=== PATIENT | male | born 1990 | race Hispanic/Latino ===

== ENCOUNTER 2024-06-27 19:31 | Emergency (ER) | payer SELFPAY ==
[2024-06-27 21:37] LABS: ALT (SGPT) 52 U/L (8-55); AST (SGOT) 23 U/L (5-34); Albumin 4.3 g/dL (3.5-5.0); Alkaline Phosphatase 61 U/L (40-110); Anion Gap 16 mmol/L (10-20); BUN (Urea Nitrogen) 19 mg/dL (8.9-20.6); Bilirubin, Total 0.4 mg/dL (0.2-1.2); Calc. Creatinine Clearance 0 mL/min (70-130); Calcium 9.4 mg/dL (7.8-10.44); Carbon Dioxide 21 mmol/L (22-29); Chloride 105 mmol/L (98-107); Estimated GFR 103; Globulin 3.1 g/dL (2.4-3.5); Glucose 94 mg/dL (70-105); Potassium 4.1 mmol/L (3.5-5.1); Protein, Total 7.4 g/dL (6.0-8.3); Sodium 138 mmol/L (136-145)
[2024-06-27 21:42] LABS: #Basophils 0.04 10x3/uL (0.0-0.2); #Eosinophils 0.02 10x3/uL (0.0-0.5); #Monocytes 0.55 10x3/uL (0.0-1.1); %Basophils 0.5 % (0.0-2.0); %Eosinophils 0.3 % (0.0-6.0); %Lymphocytes 33.9 % (18.0-47.0); %Monocytes 7.2 % (0.0-10.0); Hematocrit 40.7 % (38.8-50.0); Hemoglobin 14.1 g/dL (13.5-17.5); Mean Corpuscular HGB CONC 34.6 g/dL (32.0-36.0); Mean Corpuscular Hemoglobin 31.8 pg (27.0-33.0); Mean Corpuscular Volume 91.7 fL (81.2-95.1); Mean Platelet Volume 10.6 fL (7.4-10.4); Platelet Count 279 10x3/uL (150-450); RBC Distribution Width 12.7 % (11.5-14.5); Red Blood Cell (RBC) Count 4.44 10x6/uL (4.32-5.72); White Blood Cell (WBC) Count 7.6 10x3/uL (3.5-10.5)
== END 2024-06-27 21:45 | disposition home or self-care (01) ==
LOC: CSHERS 19:31
DX: R42 Dizziness and giddiness (principal); R29.700 NIHSS score 0; Z55.0 Illiteracy and low-level literacy; Z87.891 Personal history of nicotine dependence
CPT/HCPCS: 36415; 36416; 80053; 85025; 93005; 99284

== ENCOUNTER 2025-05-03 14:14 | Outpatient (CLI) | payer OTHER | END 2025-05-03 14:15 | disposition home or self-care (01) | LOC: CSHRAD 14:14 | DX: R10.9 Unspecified abdominal pain (principal) | CPT/HCPCS: 74018 ==